=== PATIENT | male | born 1960 | race Caucasian/White ===

== ENCOUNTER 2019-11-11 12:06 | Day surgery (SDC) | payer BC ==
[~2019-11-11] VITALS: Ht 162.6 cm; Wt 64.5 kg
[2019-11-11] VITALS (8 sets, daily range): BP systolic 129–158; BP diastolic 86–94
[2019-11-11] MEDS ORDERED: MULT-1085 PO (12:29)
[2019-11-11] MEDS ORDERED: levoFLOXACIN-Levaquin 500mg/D5 100 ML IV ONE (12:38)
[2019-11-11] MEDS ORDERED: MIDAZolam 5mg/5ml vial ONE (12:38)
[2019-11-11] MEDS ORDERED: fentaNYL/PF 50MCG/1 ML 2ML syringe ONE (12:38)
[2019-11-11] MEDS ORDERED: LIDOcaine Viscous 15ml cup ONE (12:38)
[2019-11-11] MEDS ORDERED: glucagon, human recombinant 1mg kit ONE (12:39)
[2019-11-11] MEDS ORDERED: iohexol 300 MG/1 ML 50ml polymer ONE (12:39)
== END 2019-11-11 14:45 | disposition home or self-care (01) ==
LOC: GI LAB 12:06
PROVIDERS: ATTEND Internal Medicine Gastroenterology
DX: K83.1 Obstruction of bile duct (principal)
CPT/HCPCS: 43274; 74328; 99152; 99153; C1769; J1610; J1956; J2250; J3010; J7040; Q9967; 43262; A4620